=== PATIENT | female | born 1945 | race Two or more races ===

== ENCOUNTER → 2017-04-12 | Outpatient (CLI) | payer MEDICARE, OTHER ==
[~2017-04-12] MED LIST: AMITRIPTYLINE H25 MG PO; AZO CRANBERRY1 EACH PO; BIOTIN PO; FISH OIL 1,2001 EAC1 PO; FISH OIL1000 MG PO; LEVOTHROID(SYN75 MCG PO; LOPRESSOR50 MG PO; LOSARTAN-HCTZ1 EACH PO; MAGNESIUM250 M1 PO; MIRALAX17 GM PO; PAXIL CR12.5 MG PO; PRAVACHOL20 MG PO; VITAMIN D-32000 UNI1 PO
[2017-04-12 11:05] LABS: ALBUMIN 4.2 gm/dL (3.5-5.0); ANION GAP 13.9 (10.0-19.0); CALCIUM 9.5 mg/dL (8.5-10.5); CREATININE 1.1 mg/dL (0.5-1.1); POTASSIUM 3.9 mMol/L (3.7-5.1); TOTAL BILIRUBIN 0.7 mg/dL (0.0-1.5); TOTAL PROTEIN 7.7 g/dL (6.0-8.4)
== END | disposition disaster alternative care site (69) ==
LOC: LGSMG 10:46
PROVIDERS: Student in an Organized Health Care Education/Training Program
DX: I10 Essential (primary) hypertension (principal); E78.1 Pure hyperglyceridemia

== ENCOUNTER → 2017-06-08 | Outpatient (CLI) | payer MEDICARE, OTHER | LOC: GBCOE 11:41 | DX: Z12.31 Encounter for screening mammogram for malignant neoplasm of breast (principal) | CPT/HCPCS: G0202 ==